=== PATIENT | female | born 1990 | race Caucasian/White ===

== ENCOUNTER 2016-10-25 15:30 | Emergency (ER) | payer SELFPAY ==
--- NOTE | 2016-10-25 16:36 | ER Document Report ---
HPI - HPI Patient complains to provider of: swelling Onset: Yesterday Onset/Duration: Gradual Quality of pain: Fullness, Pressure Pain Level: Denies Associated Symptoms: denies: Chills, Fever Exacerbated by: Movement Relieved by: Remaining still Similar symptoms previously: No Recently seen / treated by doctor: No - DERM Skin Color: Normal Past Medical History - Social History Smoking Status: Never Smoker Family History: Reviewed & Not Pertinent Patient has suicidal ideation: No Patient has homicidal ideation: No Renal/ Medical History: Denies: Hx Peritoneal Dialysis Vertical Provider Document - CONSTITUTIONAL Agree With Documented VS: Yes Exam Limitations: No Limitations General Appearance: WD/WN, No Apparent Distress - INFECTION CONTROL TRAVEL OUTSIDE OF THE [place] IN LAST 30 DAYS: No - RESPIRATORY Respiratory: Breath Sounds Normal, No Respiratory Distress, Chest Non-Tender - CARDIOVASCULAR Cardiovascular: Regular Rate, Regular Rhythm, No Murmur Pulses: Normal: Radial - cap refill < 2 seconds - MUSCULOSKELETAL/EXTREMETIES Musculoskeletal/Extremeties: MAEW, FROM, Non-Tender, Edema. negative: Eccymosis - NEURO Level of Consciousness: Awake, Alert, Appropriate Motor/Sensory: No Motor Deficit, No Sensory Deficit - DERM Integumentary: Warm, Dry, Rash - redness of the hand across the knuckles without erythema, induration Course - Re-evaluation Re-evalutation: 10/25/16 22:20 Presents evidence of contact/ectopic dermatitis. No evidence of topical skin lesions concerning for plant contact dermatitis. Discharge patient home on steroids and Benadryl and can follow-up with primary care Discharge - Discharge Clinical Impression: Contact dermatitis and eczema Condition: Good Disposition: HOME, SELF-CARE Instructions: Contact Dermatitis ([facility]), Atopic Dermatitis (Eczema) ([facility]), Antihistamines ([facility]) Prescriptions: Methylprednisolone [Medrol Dosepack (4 mg/Tab) 21 Tab/Dosepak] 4 mg PO ASDIR PRN #21 tab.ds.pk PRN Reason: Forms: Return to Work Referrals: [facility] [Provider Group] - Follow up as needed
[2016-10-25] MEDS ORDERED: DIPHENHYDRAMINE HCL 25 MG CAPSULE PO ONE (16:37)
[2016-10-25] MEDS ORDERED: FAMOTIDINE 20 MG TABLET PO ONE (16:37)
[2016-10-25 17:07] VITALS: BP 120/76
== END 2016-10-25 17:06 | disposition home or self-care (01) ==
LOC: ER 15:30
DX: L25.9 Unspecified contact dermatitis, unspecified cause (principal)
CPT/HCPCS: 99283

== ENCOUNTER 2017-05-06 01:20 | Inpatient (IN) | payer SELFPAY ==
[2017-05-06] MEDS ORDERED: KETOROLAC TROMETHAMINE INJ/PF 30 MG/1 ML SDV IV ONE (01:37)
[2017-05-06] MEDS ORDERED: ONDANSETRON HCL INJ/PF 4 MG/2 ML SDV IV ONE (01:37)
[2017-05-06] MEDS ORDERED: NORMAL SALINE 1000 ML 1,000 ML IV ONE (01:37)
--- NOTE | 2017-05-06 01:42 | ER Document Report ---
ED GI/ - General Mode of Arrival: Ambulatory Information source: Patient TRAVEL OUTSIDE OF THE [place] IN LAST 30 DAYS: No <JUSTIN PARRY - Last Filed: 05/06/17 04:00> <IVETH NEWBERRY - Last Filed: 05/06/17 05:53> - General Chief Complaint: Nausea/Vomiting/Diarrhea Stated Complaint: ABDOMINAL PAIN Time Seen by Provider: 05/06/17 01:37 Notes: 27 years old female presents today with nausea vomiting diarrhea since yesterday at 10:00. Today 2 episodes of left flank pain and pain across the abdomen lasting for a while crampy in nature occurred therefore concerned and came to the ED. This crampy pain made her dizzy 2. No fever chills or other constitutional symptoms (JUSTIN PARRY) - Related Data Allergies/Adverse Reactions: No Known Allergies Allergy (Verified 05/06/17 04:26) Home Medications: Current Home Medications No Home Medications 05/06/17 [History] Past Medical History - Social History Family History: Reviewed & Not Pertinent Renal/ Medical History: Denies: Hx Peritoneal Dialysis - Immunizations Hx Diphtheria, Pertussis, Tetanus Vaccination: Yes <JUSTIN PARRY - Last Filed: 05/06/17 04:00> - Social History Smoking Status: Never Smoker Frequency of alcohol use: None Drug Abuse: None Family History: Reviewed & Not Pertinent <IVETH NEWBERRY - Last Filed: 05/06/17 05:53> Review of Systems <JUSTIN PARRY - Last Filed: 05/06/17 04:00> <IVETH NEWBERRY - Last Filed: 05/06/17 05:53> - Review of Systems Notes: REVIEW OF SYSTEMS: CONSTITUTIONAL : Denies fever, chills, or sweats. Denies recent illness. EENT: Denies eye, ear, throat, or mouth pain or symptoms. Denies nasal or sinus congestion or discharge. Denies throat, tongue, or mouth swelling or difficulty swallowing. CARDIOVASCULAR: Denies chest pain. Denies palpitations or racing or irregular heart beat. Denies ankle edema. RESPIRATORY: Denies cough, cold, or chest congestion. Denies shortness of breath, difficulty breathing, or wheezing. GASTROINTESTINAL: As per history of complain GENITOURINARY: Denies difficulty urinating, painful urination, burning, frequency, blood in urine, or discharge. FEMALE GENITOURINARY: Denies vaginal bleeding, heavy or abnormal periods, irregular periods. Denies vaginal discharge or odor. MUSCULOSKELETAL: Denies back or neck pain or stiffness. Denies joint pain or swelling. SKIN: Denies rash, lesions or sores. HEMATOLOGIC : Denies easy bruising or bleeding. LYMPHATIC: Denies swollen, enlarged glands. NEUROLOGICAL: Denies confusion or altered mental status. Denies passing out or loss of consciousness. Denies dizziness or lightheadedness. Denies headache. Denies weakness or paralysis or loss of use of either side. Denies problems with gait or speech. Denies sensory loss, numbness, or tingling. Denies seizures. PSYCHIATRIC: Denies anxiety or stress. Denies depression, suicidal ideation, or homicidal ideation. ALL OTHER SYSTEMS REVIEWED AND NEGATIVE. PHYSICAL EXAMINATION: GENERAL: Well-appearing, well-nourished and in no acute distress. Obese HEAD: Atraumatic, normocephalic. EYES: Pupils equal round and reactive to light, extraocular movements intact, conjunctiva are normal. ENT: Nares patent, oropharynx clear without exudates. Moist mucous membranes. NECK: Normal range of motion, supple without lymphadenopathy LUNGS: Breath sounds clear to auscultation bilaterally and equal. No wheezes rales or rhonchi. HEART: Regular rate and rhythm without murmurs ABDOMEN: Soft, diffuse mild tenderness throughout the abdomen, nondistended abdomen. No guarding, no rebound. No masses appreciated. Female : deferred Musculoskeletal: Normal range of motion, no pitting or edema. No cyanosis. NEUROLOGICAL: Cranial nerves grossly intact. Normal speech, normal gait. Normal sensory, motor exams PSYCH: Normal mood, normal affect. SKIN: Warm, Dry, normal turgor, no rashes or lesions noted. Dictation was performed using [employer] Interactive voice recognition software (JUSTIN PARRY) - Vital signs Vitals: Temp Pulse Resp BP Pulse Ox 99.0 F 90 16 128/76 H 100 05/06/17 01:38 05/06/17 01:38 05/06/17 01:38 05/06/17 01:38 05/06/17 01:38 Course - Laboratory Result Diagrams: 05/06/17 01:29 05/06/17 01:29 <JUSTIN PARRY - Last Filed: 05/06/17 04:00> - Laboratory Result Diagrams: 05/06/17 01:29 05/06/17 01:29 <IVETH NEWBERRY - Last Filed: 05/06/17 05:53> - Re-evaluation Re-evalutation: 05/06/17 04:01 Chemistry came back with lipase highly elevated, CT of the abdomen as well as ultrasound of the gallbladder requested, patient was given morphine. Her care was signed out to spell you name from Vickey Pulliam (JUSTIN PARRY) 05/06/17 05:[address] scan do not show any evidence of gallstones or gallbladder inflammation. CT scan that shows mild pancreatitis pattern. I did reevaluate the patient and she has some pain to palpation over the epigastrium but is not severe. She says she feels much improved except for she tries to drink anything and then she starts to feel nauseous and having pain again. I talked to her length and recommended admission based on the fact that her lipase is significantly elevated. Patient agrees and agrees to stay. I did speak with the hospitalist, Dr. Bui, he agrees to accept the patient. Dictation of this chart was performed using voice recognition software; therefore, there may be some unintended grammatical errors. (IVETH NEWBERRY) - Vital Signs Vital signs: Temp Pulse Resp BP Pulse Ox 99.0 F 90 14 113/68 100 05/06/17 01:38 05/06/17 01:38 05/06/17 05:06 05/06/17 05:06 05/06/17 05:06 - Laboratory Laboratory results interpreted by me: 05/06/17 05/06/17 05/06/17 01:29 01:29 05:00 Hgb 11.2 L Hct 34.7 L MCV 76 L MCH 24.4 L RDW 16.3 H Seg Neutrophils % 91.1 H Lymphocytes % 5.1 L Chloride 108 H Glucose 113 H Lipase 9207.0 H Urine Ketones 20 H Discharge <JUSTIN PARRY - Last Filed: 05/06/17 04:00> - Discharge Admitting Provider: Hospitalist Unit Admitted: Medical Floor <IVETH NEWBERRY - Last Filed: 05/06/17 05:53> - Discharge Clinical Impression: Acute abdominal pain Pancreatitis Qualifiers: Chronicity: acute Pancreatitis type: other Acute pancreatitis complication: unspecified Qualified Code(s): K85.80 - Other acute pancreatitis without necrosis or infection Condition: Stable Disposition: ADMITTED OBSERVATION
[2017-05-06 03:05] LABS: ABSOLUTE LYMPHOCYTES (AUTO) 0.5 10^3/uL (0.5-4.7); ABSOLUTE MONOCYTES (AUTO) 0.3 10^3/uL (0.1-1.4); ABSOLUTE NEUT (AUTO) 8.2 10^3/uL (1.7-8.2); BASOPHILS % (AUTO) 0.1 % (0-2); EOSINOPHILS % (AUTO) 0.2 % (0-6); HEMATOCRIT 34.7 % (36.0-47.0); HEMOGLOBIN 11.2 g/dL (12.0-15.5); LYMPHOCYTES % (AUTO) 5.1 % (13-45); MEAN CORPUSCULAR HEMOGLOBIN 24.4 pg (27.0-33.4); MEAN CORPUSCULAR HGB CONC 32.2 g/dL (32.0-36.0); MEAN CORPUSCULAR VOLUME 76 fl (80-97); MONOCYTES % (AUTO) 3.5 % (3-13); PLATELET COUNT 290 10^3/uL (150-450); RED BLOOD COUNT 4.57 10^6/uL (3.72-5.28); RED CELL DISTRIBUTION WIDTH 16.3 % (11.5-14.0); SEGMENTED NEUTROPHILS % (AUTO) 91.1 % (42-78); TOTAL CELLS COUNTED % (AUTO) 100 %
[2017-05-06 03:11] LABS: ALANINE AMINOTRANSFERASE 41 U/L (9-52); ALBUMIN 4.1 g/dL (3.5-5.0); ALKALINE PHOSPHATASE 90 U/L (38-126); ANION GAP 11 (5-19); ASPARTATE AMINO TRANSFERASE 26 U/L (14-36); BILIRUBIN,DIRECT 0.3 mg/dL (0.0-0.4); BILIRUBIN,TOTAL 0.5 mg/dL (0.2-1.3); BLOOD UREA NITROGEN 15 mg/dL (7-20); CALCIUM 9.3 mg/dL (8.4-10.2); CARBON DIOXIDE 23 mmol/L (22-30); CHLORIDE 108 mmol/L (98-107); GLUCOSE 113 mg/dL (75-110); POTASSIUM 4.1 mmol/L (3.6-5.0); SODIUM 141.8 mmol/L (137-145); TOTAL PROTEIN 7.1 g/dL (6.3-8.2)
[2017-05-06] MEDS ORDERED: MORPHINE SULFATE 10 MG/ML INJ IV ONE (04:00)
--- NOTE | 2017-05-06 04:01 | RADIOLOGY REPORT (SQ) ---
EXAM DESCRIPTION: ACUTE ABDOMEN SERIES CLINICAL HISTORY: 27 years, Female, Acute abdominal pain COMPARISON: None. FINDINGS: Clear lungs, normal cardiac silhouette, paucity of bowel gas, no suspicious calcification, and intact bony structures. IMPRESSION: No acute findings. 2011 [employer]- All Rights Reserved
--- NOTE | 2017-05-06 05:00 | RADIOLOGY REPORT (SQ) ---
EXAM DESCRIPTION: CT ABD/PELVIS WITH IV ONLY CLINICAL HISTORY: 27 years Female, Rule out pancreatitis COMPARISON: None. TECHNIQUE: 100 mL Isovue-370 IV contrast, coronal and sagittal reformat. This exam was performed according to our departmental dose-optimization program, which includes automated exposure control, adjustment of the mA and/or kV according to patient size and/or use of iterative reconstruction technique. FINDINGS: Small fluid surrounds the pancreatic body and tail, small fluid under the left hemidiaphragm posteriorly consistent with pancreatitis. Small fluid in the pelvic cul-de-sac. Mild mesenteric lymphadenopathy of the left paracentral abdomen. Minimal T12 anterior vertebral wedging. Inferior chest, liver, spleen, splenule, gallbladder, gastrointestinal tract including appendix, adrenals, renal system, vasculature, and musculoskeleton appear otherwise unremarkable. IMPRESSION: Mild pancreatitis pattern.
[2017-05-06] MEDS ORDERED: DEXTROSE 5%-1/2 NORMAL SALINE 1,000 ML IV ONE (05:21)
--- NOTE | 2017-05-06 05:27 | RADIOLOGY REPORT (SQ) ---
EXAM DESCRIPTION: U/S ABDOMEN LIMITED W/O DOP CLINICAL HISTORY: 27 years, Female, Gallstone pancreatitis COMPARISON: CT, same day. TECHNIQUE: Transabdominal. LIMITATIONS: None. FINDINGS: Gallbladder, negative sonographic Cleaning's test, 0.6 cm diameter common duct, liver, pancreas, aorta, and 11.5 cm right kidney appear of normal size, shape, echotexture, and vascularity. No significant free fluid. IMPRESSION: No significant sonographic abnormality. There is also see concurrent abnormal CT of the abdomen and pelvis. 2011 [employer]- All Rights Reserved
[2017-05-06 05:37] LABS: APPEARANCE,URINE CLEAR; BILIRUBIN,URINE NEGATIVE (NEGATIVE); COLOR,URINE YELLOW; GLUCOSE, URINE NEGATIVE (NEGATIVE); KETONES,URINE 20 mg/dL (NEGATIVE); LEUKOCYTE ESTERASE,URINE NEGATIVE (NEGATIVE); NITRITE,URINE NEGATIVE (NEGATIVE); PROTEIN,URINE NEGATIVE (NEGATIVE); UROBILINOGEN,URINE NEGATIVE mg/dL (<2.0)
[2017-05-06 05:38] LABS: URINE SPECIFIC GRAVITY > 1.060
[2017-05-06] MEDS ORDERED: DEXTROSE 50%-WATER 25 GM/50 ML DISP.SYRIN IV PRN ×2 (06:10)
[2017-05-06] MEDS ORDERED: DEXTROSE 40% GEL 15 GM TUBE PO PRN ×2 (06:10)
[2017-05-06] MEDS ORDERED: GLUCAGON,HUMAN RECOMB 1 MG INJ SUBCUT PRN (06:10)
[2017-05-06] MEDS ORDERED: HYDROMORPHONE HCL INJ/PF 2 MG/ML AMPULE SUBCUT PRN (06:14)
[2017-05-06] MEDS: ONDANSETRON HCL INJ/PF 4 MG/2 ML SDV IV PRN ×2 (07:14→16:16)
--- NOTE | 2017-05-06 07:32 | PDOC H&P ---
History of Present Illness Admission Date/PCP: 05/06/17 06:01 Patient complains of: Abdominal pain nausea vomiting diarrhea History of Present Illness: SOLITARIO RENAE is a 27 year old female without past medical history who had been her usual state of health until 48 hours prior to presentation. She complains of epigastric abdominal pain radiating to the back, nausea vomiting and diarrhea. Pain is worsened by p.o. intake or movement alleviated by rest denies new medication, alcohol or dysuria. Vomiting of gastric content only diarrhea without blood. Patient's boyfriend had similar symptoms 3 days prior that resolved spontaneously. In the emergency room she is found to have unremarkable LFTs but a lipase of [address] with pancreatic head inflammation without ductal dilatation. She receives symptomatic management, IV fluids and referred to the hospitalist for admission Past Medical History Medical History: None GI Medical History: Reports: Gastroesophageal Reflux Disease Skin Medical History: Reports: Eczema Social History Information Source: Patient Smoking Status: Never Smoker Frequency of Alcohol Use: None Hx Recreational Drug Use: No - Advance Directive Resuscitation Status: Full Code Family History Family History: Other - Inflammatory bowel disease, grandmother with pancreatic cancer Parental Family History Reviewed: Yes Children Family History Reviewed: Yes Sibling(s) Family History Reviewed.: Yes Medication/Allergy Home Medications: No Home Medications 05/06/17 Allergies/Adverse Reactions: No Known Allergies Allergy (Verified 05/06/17 04:26) Review of Systems Constitutional: PRESENT: as per HPI, anorexia. ABSENT: fever(s), headache(s) Eyes: PRESENT: as per HPI Ears: ABSENT: hearing changes Cardiovascular: ABSENT: chest pain, dyspnea on exertion, edema, orthropnea, palpitations Respiratory: ABSENT: cough, hemoptysis Gastrointestinal: PRESENT: as per HPI, abdominal pain, bloating, diarrhea, nausea, vomiting. ABSENT: constipation Genitourinary: ABSENT: dysuria, hematuria Musculoskeletal: ABSENT: joint swelling Integumentary: ABSENT: rash, wounds Neurological: ABSENT: abnormal gait, abnormal speech, confusion, dizziness, focal weakness, syncope Psychiatric: ABSENT: anxiety, depression, homidical ideation, suicidal ideation Endocrine: ABSENT: cold intolerance, heat intolerance, polydipsia, polyuria Hematologic/Lymphatic: ABSENT: easy bleeding, easy bruising Physical Exam Vital Signs: Temp Pulse Resp BP Pulse Ox 98.0 F 97 20 111/71 100 05/06/17 06:57 12/25/17 06:57 05/06/17 06:57 05/06/17 07:01 05/06/17 07:01 Results Impressions: Acute Abdomen Series 05/06/17 01:39 IMPRESSION: No acute findings. 2010 [employer]- All Rights Reserved Abdomen/Pelvis CT 05/06/17 03:55 IMPRESSION: Mild pancreatitis pattern. Abdomen Ultrasound 05/06/17 03:57 IMPRESSION: No significant sonographic abnormality. There is also see concurrent abnormal CT of the abdomen and pelvis. 2010 [employer]- All Rights Reserved Assessment & Plan - Diagnosis (1) Pancreatitis Qualifiers: Chronicity: acute Pancreatitis type: other Acute pancreatitis complication: unspecified Qualified Code(s): K85.80 - Other acute pancreatitis without necrosis or infection Is this a current diagnosis for this admission?: Yes Plan: Acute pancreatitis likely viral given history of recent gastroenteritis. Bowel rest, symptomatic management IV fluid and electrolyte repletion. Trial clear liquid diet as pain resolves. Follow-up Chem-12 Consider outpatient gastroenterology follow-up given family history of pancreatic cancer (2) Gastroenteritis Is this a current diagnosis for this admission?: Yes Plan: Symptomatic management. (3) Acute abdominal pain Is this a current diagnosis for this admission?: Yes Plan: Symptomatic management. - Time Time Spent: 30 to 50 Minutes - Inpatient Certification Medical Necessity: Need Close Monitoring Due to Risk of Patient Decompensation
[2017-05-06] MEDS: NORMAL SALINE 1000 ML 1,000 ML IV SCH ×3 (08:05→16:09)
[2017-05-06] MEDS ORDERED: INFLUENZA ADLT QUAD (36MOS+) 2017-18 VAC 0.5 ML SYR IM PRN (08:30)
[2017-05-06] MEDS ORDERED: HYDROMORPHONE HCL INJ/PF 2 MG/ML AMPULE IV PRN (11:53)
--- NOTE | 2017-05-06 11:54 | Progress Note ---
Provider Note Provider Note: She was admitted this morning by Dr. Bui. Patient states her mouth is dry she still has some abdominal tenderness. Patient has not vomited. She is asking for some ice chips. Nurse requesting for patient Dilaudid to be switched to IV from subcu. Will follow-up with patient in the morning.
[2017-05-06] MEDS: HEPARIN SOD (PORCINE) 5,000 UNIT/ML 1 ML SYRINGE SUBCUT SCH ×2 (14:31→22:11)
[2017-05-06] MEDS: ACETAMINOPHEN 325 MG TABLET PO PRN (16:18)
[2017-05-06] MEDS ORDERED: NORMAL SALINE 1000 ML 1,000 ML IV PRN (21:29)
[2017-05-06] MEDS: KETOROLAC TROMETHAMINE INJ/PF 30 MG/1 ML SDV IV PRN (22:11)
[2017-05-07] MEDS: ACETAMINOPHEN 325 MG TABLET PO PRN (04:21)
[2017-05-07 05:50] LABS: ABSOLUTE LYMPHOCYTES (AUTO) 0.8 10^3/uL (0.5-4.7); ABSOLUTE MONOCYTES (AUTO) 0.6 10^3/uL (0.1-1.4); ABSOLUTE NEUT (AUTO) 5.8 10^3/uL (1.7-8.2); BASOPHILS % (AUTO) 0.1 % (0-2); EOSINOPHILS % (AUTO) 0.2 % (0-6); HEMATOCRIT 29.3 % (36.0-47.0); HEMOGLOBIN 9.6 g/dL (12.0-15.5); LYMPHOCYTES % (AUTO) 10.9 % (13-45); MEAN CORPUSCULAR HEMOGLOBIN 24.9 pg (27.0-33.4); MEAN CORPUSCULAR HGB CONC 32.8 g/dL (32.0-36.0); MEAN CORPUSCULAR VOLUME 76 fl (80-97); MONOCYTES % (AUTO) 8.7 % (3-13); PLATELET COUNT 189 10^3/uL (150-450); RED BLOOD COUNT 3.87 10^6/uL (3.72-5.28); RED CELL DISTRIBUTION WIDTH 16.4 % (11.5-14.0); SEGMENTED NEUTROPHILS % (AUTO) 80.1 % (42-78); TOTAL CELLS COUNTED % (AUTO) 100 %; WHITE BLOOD COUNT 7.2 10^3/uL (4.0-10.5)
[2017-05-07 06:28] LABS: ALANINE AMINOTRANSFERASE 29 U/L (9-52); ALBUMIN 2.9 g/dL (3.5-5.0); ALKALINE PHOSPHATASE 70 U/L (38-126); ANION GAP 8 (5-19); ASPARTATE AMINO TRANSFERASE 19 U/L (14-36); BILIRUBIN,DIRECT 0.1 mg/dL (0.0-0.4); BILIRUBIN,TOTAL 0.1 mg/dL (0.2-1.3); BLOOD UREA NITROGEN 8 mg/dL (7-20); CALCIUM 8.2 mg/dL (8.4-10.2); CARBON DIOXIDE 22 mmol/L (22-30); CHLORIDE 109 mmol/L (98-107); GLUCOSE 73 mg/dL (75-110); POTASSIUM 3.4 mmol/L (3.6-5.0); SODIUM 138.5 mmol/L (137-145); TOTAL PROTEIN 5.8 g/dL (6.3-8.2)
[2017-05-07] MEDS: HEPARIN SOD (PORCINE) 5,000 UNIT/ML 1 ML SYRINGE SUBCUT SCH ×3 (07:29→21:01)
[2017-05-07 07:41] LABS: LIPASE 843.9 U/L (23-300); TRIGLYCERIDES 77 mg/dL (<150)
[2017-05-07 07:52] LABS: DIRECT LDL 39 mg/dL (<100)
[2017-05-07] MEDS ORDERED: POTASSI CL 20 MEQ/50 ML RIDER 20 MEQ/50 ML RTUPB IV SCH (08:00)
[2017-05-07] MEDS: KETOROLAC TROMETHAMINE INJ/PF 30 MG/1 ML SDV IV PRN ×3 (08:54→20:28)
[2017-05-07] MEDS ORDERED: HYDROMORPHONE HCL INJ/PF 2 MG/ML AMPULE IV PRN (08:59)
[2017-05-07] MEDS ORDERED: POTASSI CL 40 MEQ/NS 1L 1,000 ML IV PRN (09:29)
--- NOTE | 2017-05-07 11:54 | PDOC PROGRESS REPORT ---
Subjective Progress Note for:: 05/07/17 Subjective:: Patient presenting with acute acute pancreatitis. Patient is feeling much better today. Patient started on clear liquid diet. Patient is actually asking for her diet to be advanced again. She is not having any nausea vomiting or abdominal pain. She did not tolerate IV potassium. Reason For Visit: ACUTE PANCREATITIS,NAUSEA VOMITING Physical Exam Vital Signs: Temp Pulse Resp BP Pulse Ox 98.9 F 104 H 16 123/70 100 05/07/17 07:40 05/07/17 07:40 05/07/17 07:40 05/07/17 07:40 05/07/17 07:40 Intake & Output 05/06/17 05/07/17 05/08/17 06:59 06:59 06:59 Intake Total 200 Output Total 700 700 Balance -500 -700 Weight 109.3 kg General appearance: PRESENT: no acute distress, obese, well-developed, well- nourished Head exam: PRESENT: normocephalic Eye exam: PRESENT: EOMI. ABSENT: scleral icterus Ear exam: PRESENT: normal external ear exam Mouth exam: PRESENT: moist Neck exam: ABSENT: carotid bruit, JVD, lymphadenopathy, thyromegaly Respiratory exam: PRESENT: clear to auscultation [place]. ABSENT: rales, rhonchi, wheezes Cardiovascular exam: PRESENT: RRR. ABSENT: diastolic murmur, rubs, systolic murmur Pulses: PRESENT: normal dorsalis pedis pul Vascular exam: PRESENT: normal capillary refill GI/Abdominal exam: PRESENT: normal bowel sounds, soft. ABSENT: distended, guarding, mass, organolmegaly, rebound, tenderness Rectal exam: PRESENT: deferred Extremities exam: PRESENT: full ROM. ABSENT: calf tenderness, clubbing, pedal edema Neurological exam: PRESENT: alert, awake, oriented to person, oriented to place , oriented to time, oriented to situation, CN II-XII grossly intact. ABSENT: motor sensory deficit Psychiatric exam: PRESENT: appropriate affect, normal mood. ABSENT: homicidal ideation, suicidal ideation Skin exam: PRESENT: dry, intact, warm, other - With excoriation and dryness of bilateral hands. ABSENT: cyanosis, rash Results Laboratory Results: 05/07/17 05:22 05/07/17 05:22 05/07/17 05/07/17 05/07/17 05:22 05:22 05:22 WBC 7.2 RBC 3.87 Hgb 9.6 L Hct 29.3 L MCV 76 L MCH 24.9 L MCHC 32.8 RDW 16.4 H Plt Count 189 Seg Neutrophils % 80.1 H Lymphocytes % 10.9 L Monocytes % 8.7 Eosinophils % 0.2 Basophils % 0.1 Absolute Neutrophils 5.8 Absolute Lymphocytes 0.8 Absolute Monocytes 0.6 Absolute Eosinophils 0.0 Absolute Basophils 0.0 Sodium 138.5 Potassium 3.4 L Chloride 109 H Carbon Dioxide 22 Anion Gap 8 BUN 8 Creatinine 0.63 Est GFR ( Amer) > 60 Est GFR (Non-Af Amer) > 60 Glucose 73 L Calcium 8.2 L Total Bilirubin 0.1 L AST 19 ALT 29 Alkaline Phosphatase 70 Total Protein 5.8 L Albumin 2.9 L Triglycerides 77 Cholesterol 109.00 LDL Cholesterol Direct 39 VLDL Cholesterol 15.0 HDL Cholesterol 51 Lipase 843.9 H Impressions: Acute Abdomen Series 05/06/17 01:39 IMPRESSION: No acute findings. 2010 [employer]- All Rights Reserved Abdomen/Pelvis CT 05/06/17 03:55 IMPRESSION: Mild pancreatitis pattern. Abdomen Ultrasound 05/06/17 03:57 IMPRESSION: No significant sonographic abnormality. There is also see concurrent abnormal CT of the abdomen and pelvis. 2010 [employer]- All Rights Reserved Assessment & Plan - Diagnosis (1) Pancreatitis Qualifiers: Chronicity: acute Pancreatitis type: other Acute pancreatitis complication: unspecified Qualified Code(s): K85.80 - Other acute pancreatitis without necrosis or infection Is this a current diagnosis for this admission?: Yes Plan: Acute pancreatitis could be due to viral etiology as patient does not drink. Patient lipase is now 843 down from 9000. Patient tolerating clear liquids. Advance diet as tolerated. Please note that patient lipid panel was also normal. Did discuss with patient the possibility of a HIDA scan and further evaluation if she has this abdominal discomfort again. (2) Gastroenteritis Is this a current diagnosis for this admission?: Yes Plan: Patient with gastroenteritis most likely due to a virus. Patient received symptomatic treatment along with IV hydration. Patient is no longer vomiting or having diarrhea. Patient started on a liquid diet. Continue supportive care with antiemetics and IV fluids. (3) Hypokalemia Plan: Patient initially given 40 any cues however unable to tolerate the IV potassium. Patient started on normal saline with 40mEq of potassium at 100 cc an hour. Will follow-up potassium level in the morning. (4) Acute abdominal pain Is this a current diagnosis for this admission?: Yes Plan: Secondary gastroenteritis and pancreatitis. The patient is improved. Patient started on a clear liquid diet. Continue supportive care with as needed pain medication and antiemetics. - Time Time Spent with patient: Less than 15 minutes Anticipated discharge: Home Within: within 24 hours - Inpatient Certification Medical Necessity: Need For IV Fluids
[2017-05-08] MEDS: KETOROLAC TROMETHAMINE INJ/PF 30 MG/1 ML SDV IV PRN (04:05)
[2017-05-08] MEDS: HEPARIN SOD (PORCINE) 5,000 UNIT/ML 1 ML SYRINGE SUBCUT SCH (05:07)
[2017-05-08 06:55] LABS: ANION GAP 9 (5-19); BLOOD UREA NITROGEN 6 mg/dL (7-20); CALCIUM 8.4 mg/dL (8.4-10.2); CARBON DIOXIDE 22 mmol/L (22-30); CHLORIDE 109 mmol/L (98-107); GLUCOSE 76 mg/dL (75-110); POTASSIUM 3.6 mmol/L (3.6-5.0); SODIUM 139.7 mmol/L (137-145)
[2017-05-08 09:29] VITALS: BP 121/66
--- NOTE | 2017-05-08 13:06 | PDOC DISCHARGE SUMMARY ---
General - Admit/Disc Date/PCP Admission Date/Primary Care Provider: 05/06/17 06:10 Discharge Date: 05/08/17 - Discharge Diagnosis (1) Pancreatitis Is this a current diagnosis for this admission?: Yes (2) Gastroenteritis Is this a current diagnosis for this admission?: Yes (4) Acute abdominal pain Is this a current diagnosis for this admission?: Yes - Additional Information Resuscitation Status: Full Code Discharge Diet: As Tolerated Discharge Activity: Activity As Tolerated Prescriptions: Omeprazole 40 mg PO AC 30 Days #30 capsule. Oxycodone HCl/Acetaminophen [Percocet 5-325 mg Tablet] 1 tab PO Q4 2 Days #12 tab Promethazine HCl [Phenergan 25 mg Tablet] 25 mg PO Q6 #10 tablet Home Medications: Omeprazole 40 mg PO AC 30 Days #30 capsule. 05/08/17 Oxycodone HCl/Acetaminophen [Percocet 5-325 mg Tablet] 1 tab PO Q4 2 Days #12 tab 05/08/17 Promethazine HCl [Phenergan 25 mg Tablet] 25 mg PO Q6 #10 tablet 05/08/17 History of Present Illness History of Present Illness: SOLITARIO RENAE is a 27 year old female in the past medical history other than eczema presenting with complaint of epigastric abdominal pain radiating to her back nausea vomiting and diarrhea. Patient denies any new medication alcohol or dysuria. Please refer to H&P dictated by Dr. Jelani Bui for complete details. Hospital Course Hospital Course: She was admitted to the hospital for symptomatic pancreatitis. Patient was found to have a lipase of almost 9000. CT scan of the abdomen and pelvis showed pancreatic head inflammation without ductal dilatation. Patient was brought in and started on IV fluids, PPIs and as needed pain medication. Patient lipase did trend down to 800s and in the 400s. Patient was started on liquid diet and advance to a bland diet. Patient has no more vomiting or diarrhea however she still has some dyspepsia. Patient was advised that she should take it easy not eating as she may have some dyspepsia for the next several days. Patient was discharged on as needed pain medications, antibiotics and PPI. Patient was also referred to community [facility] for follow-up as she does not have a PCP. Patient advised to return to work on Saturday. Patient also has some hypokalemia for which she received replacement. Patient testing was improved prior to discharge. Physical Exam Vital Signs: Temp Pulse Resp BP Pulse Ox 98.5 F 97 18 121/66 100 05/08/17 09:28 05/08/17 09:28 05/08/17 09:28 05/08/17 09:28 05/08/17 09:28 Intake & Output 05/07/17 05/08/17 05/09/17 06:59 06:59 06:59 Intake Total 200 200 Output Total 700 1300 Balance -500 -1300 200 Weight 109.3 kg 109 kg General appearance: PRESENT: no acute distress, obese, well-developed, well- nourished Head exam: PRESENT: normocephalic Eye exam: PRESENT: EOMI. ABSENT: scleral icterus Ear exam: PRESENT: normal external ear exam Mouth exam: PRESENT: moist Neck exam: ABSENT: carotid bruit, JVD, lymphadenopathy, thyromegaly Respiratory exam: PRESENT: clear to auscultation [place]. ABSENT: rales, rhonchi, wheezes Cardiovascular exam: PRESENT: RRR. ABSENT: diastolic murmur, rubs, systolic murmur Pulses: PRESENT: normal dorsalis pedis pul Vascular exam: PRESENT: normal capillary refill GI/Abdominal exam: PRESENT: normal bowel sounds, soft, tenderness. ABSENT: distended, guarding, mass, organolmegaly, rebound Rectal exam: PRESENT: deferred Extremities exam: PRESENT: full ROM. ABSENT: calf tenderness, clubbing, pedal edema Neurological exam: PRESENT: alert, awake, oriented to person, oriented to place , oriented to time, oriented to situation, CN II-XII grossly intact. ABSENT: motor sensory deficit Psychiatric exam: PRESENT: appropriate affect, normal mood. ABSENT: homicidal ideation, suicidal ideation Skin exam: PRESENT: dry, intact, warm, other - Dry skin on the hands.. ABSENT: cyanosis, rash Results Laboratory Results: 05/07/17 05:22 05/08/17 06:20 05/08/17 05/08/17 06:20 06:20 Sodium 139.7 Potassium 3.6 Chloride 109 H Carbon Dioxide 22 Anion Gap 9 BUN 6 L Creatinine 0.56 Est GFR ( Amer) > 60 Est GFR (Non-Af Amer) > 60 Glucose 76 Calcium 8.4 Lipase 652.4 H Impressions: Acute Abdomen Series 05/06/17 01:39 IMPRESSION: No acute findings. 2010 [employer]- All Rights Reserved Abdomen/Pelvis CT 05/06/17 03:55 IMPRESSION: Mild pancreatitis pattern. Abdomen Ultrasound 05/06/17 03:57 IMPRESSION: No significant sonographic abnormality. There is also see concurrent abnormal CT of the abdomen and pelvis. 2010 [employer]- All Rights Reserved Qualifiers PATEINT BEING DISCHARGED WITH ANY OF THE FOLLOWING DIAGNOSIS?: No Plan Time Spent: Greater than 30 Minutes
== END 2017-05-08 09:55 | disposition home or self-care (01) | DRG 440 ==
LOC: ER 01:20 → EH 06:01 → OBSVTOIN 06:10 → 2N 07:43
PROVIDERS: ADMIT Internal Medicine; ATTEND Internal Medicine
DX: K85.90 Acute pancreatitis without necrosis or infection, unspecified (principal); A08.4 Viral intestinal infection, unspecified; E87.6 Hypokalemia; K21.9 Gastro-esophageal reflux disease without esophagitis; L30.9 Dermatitis, unspecified; Z80.8 Family history of malignant neoplasm of other organs or systems
CPT/HCPCS: 36415; 74022; 74177; 76705; 80048; 80053; 80061; 80076; 81001; 81025; 83690; 83735; 85025; 87086; 96361; 96374; 96375; 99285; J1170; J1644; J1885; J2270; J2405; J3480; J7030

== ENCOUNTER 2018-05-14 17:49 | Emergency (ER) | payer OTHER ==
[2018-05-14] MEDS ORDERED: DIPH/PERTUSS(ACELL)/TETANUS VAC/PF 0.5 ML SYR (>=10YO) IM ONE (20:07)
[2018-05-14] MEDS ORDERED: LIDOCAINE 1% INJ-PF (10 MG/ML) 30 ML SDV INJ ONE (20:10)
--- NOTE | 2018-05-14 20:12 | ER Document Report ---
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 Tetanus status unknown. I have greeted and performed a rapid initial assessment of this patient. A comprehensive ED assessment and evaluation of the patient, analysis of test results and completion of medical decision making process we will be contacted by additional ED providers. PHYSICAL EXAMINATION: Vital signs reviewed GENERAL: Well-appearing, well-nourished and in no acute distress. LUNGS: No respiratory distress Musculoskeletal: Normal range of motion NEUROLOGICAL: Normal speech, normal gait. PSYCH: Normal mood, normal affect. SKIN: Laceration to the left first nailbed. TRAVEL OUTSIDE OF THE [place] IN LAST 30 DAYS: No - HPI Onset: Just prior to arrival Onset/Duration: Sudden Quality of pain: Throbbing Severity: Moderate Associated Symptoms: None Exacerbated by: Movement Relieved by: Denies Similar symptoms previously: No Recently seen / treated by doctor: No - Related Data Smoking: Non-smoker Frequency of alcohol use: None Drug Abuse: None Allergies/Adverse Reactions: No Known Allergies Allergy (Verified 05/14/18 17:51) Past Medical History Renal/ Medical History: Denies: Hx Peritoneal Dialysis GI Medical History: Reports: Hx Gastroesophageal Reflux Disease Skin Medical History: Reports Hx Eczema - Immunizations Hx Diphtheria, Pertussis, Tetanus Vaccination: Yes History of Influenza Vaccine for 02/2017 - 07/2017 Season: No Physical Exam - Vital signs Vitals: Temp Pulse Resp BP Pulse Ox 98.0 F 112 H 16 141/75 H 100 05/14/18 17:55 05/14/18 17:55 05/14/18 17:55 05/14/18 17:55 05/14/18 17:55 Course - Vital Signs Vital signs: Temp Pulse Resp BP Pulse Ox 98.0 F 112 H 16 141/75 H 100 05/14/18 17:55 05/14/18 17:55 05/14/18 17:55 05/14/18 17:55 05/14/18 17:55
--- NOTE | 2018-05-14 20:28 | RADIOLOGY REPORT (SQ) ---
EXAM DESCRIPTION: HAND LEFT 2 VIEWS COMPLETED DATE/TIME: 05/14/2018 8:18 pm REASON FOR STUDY: Laceration distal thumb COMPARISON: None. EXAM PARAMETERS: NUMBER OF VIEWS: Three views. TECHNIQUE: AP, lateral and oblique radiographic images acquired of the left hand. LIMITATIONS: None. FINDINGS: MINERALIZATION: Normal. BONES: No acute fracture or dislocation. No worrisome bone lesions. JOINTS: No effusion. SOFT TISSUES: Distal 1st digit soft tissue swelling. No radiopaque foreign body. OTHER: No other significant finding. IMPRESSION: NO FRACTURE.Distal 1st digit soft tissue swelling. No radiopaque foreign body. TECHNICAL DOCUMENTATION: JOB ID: [id number] [place]-72 2010 [employer]- All Rights Reserved Reading location - IP/workstation name: [email or web address]
[2018-05-14] MEDS ORDERED: DIAZEPAM 2 MG TABLET PO ONE (22:38)
--- NOTE | 2018-05-14 22:38 | ER Document Report ---
ED General - General Chief Complaint: Laceration Stated Complaint: WORK INJ/THUMB INJURY Time Seen by Provider: 05/14/18 20:07 Mode of Arrival: Ambulatory Notes: Patient is a 28-year-old female who presents to the emergency department with a chief complaint of of a cut on her left thumb. 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 This happened around 1700. She is unsure as to when her last tetanus shot was, therefore she was treated with a tetanus shot here in the emergency department. She states her pain is a throbbing pain. The cut is an avulsion to the tip of her left thumb. The partial avulsion is attached at the lateral aspect of her first digit with partial fingernail avulsion. TRAVEL OUTSIDE OF THE [place] IN LAST 30 DAYS: No - Related Data Allergies/Adverse Reactions: No Known Allergies Allergy (Verified 05/14/18 17:51) Past Medical History - General Information source: Patient - Social History Smoking Status: Never Smoker Chew tobacco use (# tins/day): No Frequency of alcohol use: None Drug Abuse: None Family History: Other - Inflammatory bowel disease, grandmother with pancreatic cancer Patient has suicidal ideation: No Patient has homicidal ideation: No Renal/ Medical History: Denies: Hx Peritoneal Dialysis GI Medical History: Reports: Hx Gastroesophageal Reflux Disease Skin Medical History: Reports Hx Eczema - Immunizations Hx Diphtheria, Pertussis, Tetanus Vaccination: Yes Physical Exam - Vital signs Vitals: Temp Pulse Resp BP Pulse Ox 98.0 F 112 H 16 141/75 H 100 05/14/18 17:55 05/14/18 17:55 05/14/18 17:55 05/14/18 17:55 05/14/18 17:55 - Notes Notes: PHYSICAL EXAMINATION: GENERAL: Appears well, healthy, well-nourished, no acute distress. HEAD: Normocephalic, atraumatic. EYES: PERRL, conjunctiva normal, all extraocular movements intact, sclera nonicteric ENT: Moist mucous membranes. NECK: Supple, no noticeable swelling, redness, rash. Normal range of motion. LUNGS: Equal breath sounds bilaterally and clear to auscultation. No wheezes rales or rhonchi. CARDIOVASCULAR: S1-S2, regular rate, regular rhythm. Radial pulses 2+, normal. ABDOMEN: Normoactive bowel sounds. Soft, nontender, no guarding, no rebound tenderness, and no masses palpated. EXTREMITIES: Normal strength and range of motion, no pitting or edema. No cyanosis. NEUROLOGICAL: Moves all extremities upon command. Strength 5/5 in all extremities. PSYCH: Anxious. SKIN: Warm, dry. Partial avulsion noted to left first finger. A small piece of skin is still attached to the avulsed piece of skin. Course - Re-evaluation Re-evalutation: Patient has a avulsion to the tip of her left first finger. Her nailbed is intact. A portion of her nail has been cut with the avulsion. A small piece of skin is attached at the corner of her finger. Her x-ray is normal. She is having some anxiety over her injury. She will be given 2 mg of Valium keep her relaxed during her avulsion repair. Digital block was done and one stitch was placed to tack down the avulsed piece of skin. Patient was still a little bit anxious during the repair. I offered to place 2 stitches to her finger, but she asked that only one stitch be placed. I suspect the avulsion will eventually fall off and I have educated the patient that this could potentially happen. She verbalized understanding of this. She will follow-up in 7-10 days with her primary care provider to have the stitch removed. She will be started on prophylactic antibiotics and sent home with pain medication. Verbal discharge instructions were given to the patient. They verbalized understanding. They are stable for discharge. - Vital Signs Vital signs: Temp Pulse Resp BP Pulse Ox 97.8 F 95 18 135/66 H 99 05/14/18 23:41 05/14/18 23:41 05/14/18 23:41 05/14/18 23:41 05/14/18 23:41 Procedures - Laceration/Wound Repair Left Thumb Wound length (cm): 1 Wound's Depth, Shape: Flap, Nail-avulsed - Tip of the nail Laceration pre-procedure: Sterile PPE Wisam hernandez applied Anesthetic type: 2% Lidocaine Wound explored: Clean Wound Repaired With: Sutures Suture Size/Type: 5:0 Number of Sutures: 1 Layer Closure?: Yes Post-procedure wound care: Sterile dressing applied Post-procedure NV exam normal: Yes Complications: No Discharge - Discharge Clinical Impression: Fingernail avulsion, partial Qualifiers: Encounter type: initial encounter Qualified Code(s): S61.309A - Unspecified open wound of unspecified finger with damage to nail, initial encounter Avulsion, finger tip Qualifiers: Encounter type: initial encounter Qualified Code(s): S61.209A - Unspecified open wound of unspecified finger without damage to nail, initial encounter Condition: Stable Disposition: HOME, SELF-CARE Additional Instructions: You were seen in the emergency department for a cut on your left thumb. You have a stitch to the area. Please keep the area clean and dry. The flap may fall off. Your tissue will eventually regrow, just like your other cut did. Please have it removed by her primary care doctor or the ER in 7-10 days. He had been started on antibiotics for your cut because the cut is on your hand. Please finish all your antibiotics as prescribed. You have been given pain medicine for your thumb. You may take this medication every 6 hours as needed for the pain. You also received a tetanus shot here in the emergency department. You develop a fever greater than 100.4 F, in the area, or have any symptoms that are worrisome to you, please return to the emergency department. Prescriptions: RX: Cephalexin Monohydrate [Keflex 500 mg Capsule] 500 mg PO Q6H 5 Days capsule Forms: Return to Work
[2018-05-14] MEDS ORDERED: LIDOCAINE 1% INJ-PF (10 MG/ML) 30 ML SDV ONE (23:05)
[2018-05-14 23:47] VITALS: BP 135/66
[2018-05-15] MEDS ORDERED: HYDROCODONE/ACETAMINOPHEN 5-325 MG (6 TAB/ER DISP) PO PRN (00:12)
== END 2018-05-15 00:30 | disposition home or self-care (01) ==
LOC: ER 17:49
PROC: 0HQGXZZ Repair Left Hand Skin, External Approach (ICD-10-PCS; principal; 2018-05-14)
DX: S61.309A Unspecified open wound of unspecified finger with damage to nail, initial encounter (principal); W26.0XXA Contact with knife, initial encounter; Y93.G1 Activity, food preparation and clean up
CPT/HCPCS: 99283; 90471; 73120; 90715; 12001; J3490 ×2